=== PATIENT | male | born 1945 | race Caucasian/White ===

== ENCOUNTER 2020-07-16 09:46 | Emergency (ER) | payer OTHER ==
[~2020-07-16] VITALS: Ht 182.9 cm; Wt 78.9 kg
[~2020-07-16 09:46] MED LIST: ALFU10 PO; AMLO5 PO; ASPI325 PO; ASPI81CH PO; Aspirin EC81 MG PO; DOCU100 PO; EFFIENT10 MG PO; ERGO50000 PO; FINA5 PO; ISOD40ER PO; ISOMON20 PO; ISOMON30 PO; LISI10 PO; LISI20 PO; LISI5 PO; LORA.5 PO; LORA1 PO; METH10 PO; METO50 PO; MORP30 PO; MULVITMIND PO; NAPR220 PO; NITR.3SL SL; NITR.6SL SL; Nitrostat0.4 MG SL; OMEP20ER PO; OXYC10ER PO; OXYC10TA19 PO; OXYC5 PO; POTA10T PO; Prinivil10 MG PO; RANI150 PO; RANO500T PO; ROSU10TA PO; Thera Tears1 EAC1 BOTHEYES; XARELTO15 MG PO; [UNRECOGNIZED DRUG - OTHER] PO
[2020-07-16] MEDS ORDERED: Robaxin-750750 MG PO (12:39)
[2020-07-16] MEDS ORDERED: Prednisone20 MG PO (12:39)
== END 2020-07-16 13:26 | disposition home or self-care (01) ==
LOC: ER 09:46
DX: M25.552 Pain in left hip (principal); I10 Essential (primary) hypertension; I25.10 Atherosclerotic heart disease of native coronary artery without angina pectoris; E11.9 Type 2 diabetes mellitus without complications; E78.00 Pure hypercholesterolemia, unspecified; I25.810 Atherosclerosis of coronary artery bypass graft(s) without angina pectoris; Z95.5 Presence of coronary angioplasty implant and graft; Z95.1 Presence of aortocoronary bypass graft; Z87.891 Personal history of nicotine dependence; W19.XXXA Unspecified fall, initial encounter
CPT/HCPCS: 72192; 73502; 96374; 96376; 99284-25; J3010; J7512

== ENCOUNTER 2021-05-08 19:43 | Emergency (ER) | payer OTHER ==
[~2021-05-08] VITALS: Ht 182.9 cm; Wt 80.7 kg
[~2021-05-08 19:43] MED LIST changes: +Prednisone20 MG PO; +Robaxin-750750 MG PO
== END 2021-05-08 22:26 | disposition home or self-care (01) ==
LOC: ER 19:43
DX: S61.213A Laceration without foreign body of left middle finger without damage to nail, initial encounter (principal); W31.2XXA Contact with powered woodworking and forming machines, initial encounter; I10 Essential (primary) hypertension; E11.9 Type 2 diabetes mellitus without complications; Z79.82 Long term (current) use of aspirin; Z88.6 Allergy status to analgesic agent; Z88.8 Allergy status to other drugs, medicaments and biological substances; Z88.5 Allergy status to narcotic agent; Z88.2 Allergy status to sulfonamides
CPT/HCPCS: 73140; 99283-25

== ENCOUNTER 2021-05-09 13:20 | Emergency (ER) | payer OTHER ==
[~2021-05-09] VITALS: Ht 182.9 cm; Wt 80.3 kg
== END 2021-05-09 16:07 | disposition home or self-care (01) ==
LOC: ER 13:20
DX: S61.203A Unspecified open wound of left middle finger without damage to nail, initial encounter (principal); I48.91 Unspecified atrial fibrillation; Z79.01 Long term (current) use of anticoagulants; Z95.5 Presence of coronary angioplasty implant and graft; X58.XXXA Exposure to other specified factors, initial encounter
CPT/HCPCS: 99282

== ENCOUNTER 2021-08-15 00:20 | Emergency (ER) | payer OTHER ==
[~2021-08-15] VITALS: Ht 182.9 cm; Wt 79.4 kg
== END 2021-08-15 04:06 | disposition home or self-care (01) ==
LOC: ER 00:20
DX: S20.362A Insect bite (nonvenomous) of left front wall of thorax, initial encounter (principal); I25.10 Atherosclerotic heart disease of native coronary artery without angina pectoris; I10 Essential (primary) hypertension; E11.9 Type 2 diabetes mellitus without complications; E78.00 Pure hypercholesterolemia, unspecified; G47.33 Obstructive sleep apnea (adult) (pediatric); Z87.891 Personal history of nicotine dependence; Z91.048 Other nonmedicinal substance allergy status; Z88.2 Allergy status to sulfonamides; Z88.8 Allergy status to other drugs, medicaments and biological substances; Z88.5 Allergy status to narcotic agent; Z88.6 Allergy status to analgesic agent; Z79.899 Other long term (current) drug therapy; W57.XXXA Bitten or stung by nonvenomous insect and other nonvenomous arthropods, initial encounter
CPT/HCPCS: 99282

== ENCOUNTER 2022-01-06 22:45 | Observation (INO) | payer OTHER ==
[~2022-01-06] VITALS: Ht 182.9 cm; Wt 78.0 kg
[~2022-01-06 22:45] MED LIST changes: -ISOMON20 PO; +Imdur-ER60 MG PO; -OXYC10TA19 PO; -XARELTO15 MG PO; +XARELTO20 MG PO
[2022-01-07] MEDS ORDERED: Vitamin D1000 UNI1 PO (05:06)
[2022-01-07] MEDS ORDERED: DUTA.5 PO (05:07)
[2022-01-07] MEDS ORDERED: FAMO20 PO (05:07)
[2022-01-07] MEDS ORDERED: LIDO700A20 TOP (05:08)
[2022-01-07] MEDS ORDERED: Flonase 0.05% N16 GM (05:08)
[2022-01-07] MEDS ORDERED: Loratadine10 MG PO (05:09)
[2022-01-07] MEDS ORDERED: OXYC10ER PO (05:10)
[2022-01-07] MEDS ORDERED: MULVITA PO (05:10)
[2022-01-07 05:38] LABS: BASOPHILS ABSOLUTE AUTO 0.05 K/mm3 (0.00-0.23); BASOPHILS PERCENT AUTO 0 % (0-2); EOSINOPHILS ABSOLUTE AUTO 0.01 K/mm3 (0.00-0.68); EOSINOPHILS PERCENT AUTO 0 % (0-6); Hematocrit 36.5 % (37.0-53.0); Hemoglobin 12.5 g/dL (13.5-17.5); IMMATURE GRAN ABSOLUTE AUTO 0.06 K/mm3 (0.00-0.10); IMMATURE GRAN PERCENT AUTO 1 % (0-1); LYMPHOCYTES ABSOLUTE AUTO 2.46 K/mm3 (0.84-5.20); LYMPHOCYTES PERCENT AUTO 21 % (21-46); MONOCYTES ABSOLUTE AUTO 2.41 K/mm3 (0.16-1.47); MONOCYTES PERCENT AUTO 21 % (4-13); Mean Corpuscular HGB 29.2 pg (26.0-34.0); Mean Corpuscular HGB Conc 34.2 g/dL (31.5-36.5); Mean Corpuscular Volume 85 fL (80-100); Mean Platelet Volume 11.5 fL (9.1-12.4); NEUTROPHILS ABSOLUTE AUTO 6.54 K/mm3 (1.96-9.15); NEUTROPHILS PERCENT AUTO 57 % (41-73); Platelet Count 120 K/mm3 (150-400); RDW Coefficient Variation 13.2 % (11.7-14.2); RDW Standard Deviation 40.8 fL (35.1-46.3); Red Blood Cell Count 4.28 M/mm3 (4.30-5.90); White Blood Cell Count 11.53 K/mm3 (4.00-11.30)
[2022-01-07 06:45] LABS: Anion Gap 6 mmol/L (6-16); Blood Urea Nitrogen 14 mg/dL (8-24); Bun/Creatinine Ratio 16.5 (12.0-20.0); CO2, Blood 26 mmol/L (21-32); Calcium, Blood 9.1 mg/dL (8.5-10.1); Chloride, Blood 103 mmol/L (98-108); Creatinine, Blood 0.85 mg/dL (0.60-1.20); Glomerular Filtration Rate >60 (60-); Glucose, Blood 172 mg/dL (70-99); Potassium, Blood 3.9 mmol/L (3.5-5.5); Sodium, Blood 135 mmol/L (136-145)
--- NOTE | 2022-01-07 07:44 | NUR ---
PER TELE: NSR AT 96 WITH INCREASED PVC'S. HAS BEEN BIGEMINY WITH MOR FREQUENT PVC'S. VSS. CALLED DR SCOTT. SHE WILL ORDER K+ AND METOPROLOL PUSH,
--- NOTE | 2022-01-07 07:45 | NUR ---
PT PLEASANT COOP A/O X3. STATES PAIN IS 5-6, BUT OKAY. H/R REG, NO MURMER NOTED. PER TELE:; NSR WITH MANY PVC'S BIGENINY, SEE NOTES ON DISCUSSION WITH DR SCOTT. LUNGS CLEAR, RESP EASY, UNALBORED. ON R.A. BT X4 LAST BM YEST PER PT. VIODS URINAL. PRESENTLY IN PAIN IF MOVES . BED IN LOW POSITION, CALL LITE IN REACH, CALLS APPROP
--- NOTE | 2022-01-07 11:57 | NUR ---
SPOKE TO DR SCOTT. YES RUN UA. OKAY HOLD PAIN MED R/T LOW BP[facility]
[2022-01-07 12:09] LABS: Source, Urine Clean Catch
[2022-01-07 12:14] LABS: Appearance, Urine Clear (Clear); Bilirubin, Urine Neg (Neg); Blood, Urine Neg (Neg); Color, Urine Yellow (P-Yellow); Glucose Qualitative, Urine Neg (Neg); Ketones, Urine 1+ (Neg); Leukocyte Esterase, Urine Neg (Neg); Nitrite, Urine Neg (Neg); Protein, Urine Neg (Neg); Specific Gravity, Urine 1.015 (1.003-1.022); Urobilinogen, Urine NORM (Normal)
--- NOTE | 2022-01-07 15:09 | NUR ---
[address] CHING TELE RHYTHM. RUNNING METOPROLOL NOW. TELE ADVISED. BP 153/60 P 96 PER TELE MID OF METOPROLOL 158/84 P 99 END OF METOPROLOL 153/78 P 91 08:25 FOLLOWUP 138/76 P 88 08:30 FOLLOWUP 136/56 P 93 TELE STATES PVC'S IMPROVED NOT BIGEMINY NOW. DR NOTIFIED.
--- NOTE | 2022-01-07 15:16 | NUR ---
1040 PT BP LOW. 104/64 & 107/63 P 79 HOLDING OXY , NOTIFIED.
--- NOTE | 2022-01-07 19:27 | NUR ---
PT PLEASANT COOP DID HAVE SOME SPASMS. MED WITH CYCLO AND FENTANYL. BP STABILIZED FROM THIS AM. IN [place], CALLED IN THE INFORMATION ON THE STENT CARD WE NEED FOR HIS MRI. PASSED TO [facility]. PREVIOUSLY NOTED, THE TELE STATES HEART SETTLING DOWN. UPDATED T/O DAY. PAIN MANAGED TO PT SATISFACTION. BED IN LOW POSITION, CALLLITE IN REACH, CALLS APPROP
--- NOTE | 2022-01-07 21:29 | NUR ---
Faxed over stent info to MRI, followed up and said they have received it. They will follow up in the morning.
--- NOTE | 2022-01-08 04:51 | NUR ---
Patient is alert and oriented x4. Complains of back pain, prn pain medication given. Patient states effectiveness. Patient lays in supine position all night, minimal movement due to pain. Urinal offered. Snacks and fluids offered. No signs of distress. Call light within reach.
[2022-01-08 05:23] LABS: Hematocrit 36.9 % (37.0-53.0); Hemoglobin 12.5 g/dL (13.5-17.5); Mean Corpuscular HGB 29.1 pg (26.0-34.0); Mean Corpuscular HGB Conc 33.9 g/dL (31.5-36.5); Mean Corpuscular Volume 86 fL (80-100); Mean Platelet Volume 12.2 fL (9.1-12.4); Platelet Count 117 K/mm3 (150-400); RDW Coefficient Variation 13.3 % (11.7-14.2); RDW Standard Deviation 41.6 fL (35.1-46.3); White Blood Cell Count 13.02 K/mm3 (4.00-11.30)
[2022-01-08 06:13] LABS: Alanine Aminotransfer (ALT/SGP 24 U/L (12-78); Albumin, Blood 3.3 g/dL (3.4-5.0); Albumin/Globulin Ratio 0.7 (0.8-1.8); Alk Phos 30 U/L (50-136); Anion Gap 8 mmol/L (6-16); Aspartate Aminotrans (AST/SGOT 11 U/L (12-37); Blood Urea Nitrogen 16 mg/dL (8-24); Bun/Creatinine Ratio 18.8 (12.0-20.0); CO2, Blood 24 mmol/L (21-32); Calcium, Blood 9.6 mg/dL (8.5-10.1); Chloride, Blood 102 mmol/L (98-108); Creatinine, Blood 0.85 mg/dL (0.60-1.20); Globulin, Blood 4.5 g/dL (2.2-4.0); Glomerular Filtration Rate >60 (60-); Glucose, Blood 147 mg/dL (70-99); Potassium, Blood 3.9 mmol/L (3.5-5.5); Sodium, Blood 134 mmol/L (136-145); Total Protein, Blood 7.8 g/dL (6.4-8.2)
--- NOTE | 2022-01-08 07:37 | NUR ---
NOTIFIED CAN NOT DO MRI DUE TO MULTIPLE STENTS AND CAN NOT MEET REQUIREMENTS.
--- NOTE | 2022-01-08 09:32 | NUR ---
NOTIFIED DR.OLSON LOVE AT9AM AND NOW FREQUENT PVC'S. DID SAME YESTERDAY. TO ORDER MEDS
--- NOTE | 2022-01-08 13:35 | NUR ---
LEFT VOICE MAIL MESSAGE ON PHONE--SISTER CONCERNED ABOUT ALLERGIES SHE HAS SOME OF THE SAME AND SHE CAN NOT TAKE GABAPENTIN. ALSO WERE WONDERING ABOUT CARDIOLOGY CONSULT HE HAS ALWAYS HAD CARD CONSULT WHEN IN HOSPITAL DUE TO MEDS ETC. AWAITING ORDERS.
--- NOTE | 2022-01-08 16:11 | NUR ---
ALERT. ORIENTED. POOR APPETITE. USES URINAL. PAIN MEDS SEEM TO HELP IS SLEEPING WHEN RN DOES RECHECK. PER ELECTRICAL TECHNICIAN COULD NOT DO BECAUSE THEY COULD NOT ACCOMMADATE REQUIREMENTS FOR STENTS. UNLABORED RESPIRATIONS. TELE ON AND WAS RUNNING BIGEMINY IN AM AND GIVEN ONE DOSE IV MEDS WITH GOOD RESULTS. WCTM
--- NOTE | 2022-01-09 04:50 | NUR ---
SHIFT SUMMARY AOX4. VSS. TELE NSR c PVC & AFIB c ABERRENCY HR 80'S. REPORTED 9/10 PAIN IN BACK @HS, MEDICATED 1X c SCHEDULED 10MG OXYCONTIN. THIS AM PT REPORTS HE FEELS "MUCH BETTER" & IS BACK TO HIS NORMAL 3/10 PAIN LEVEL. STATES HE'S "AFRAID TO GET UP & WORK c PT" ENCOURAGED PT TO TRY. CALL LIGHT IN REACH. WILL MONITOR.
[2022-01-09 05:38] LABS: Hematocrit 38.3 % (37.0-53.0); Hemoglobin 13.1 g/dL (13.5-17.5); Mean Corpuscular HGB 29.1 pg (26.0-34.0); Mean Corpuscular HGB Conc 34.2 g/dL (31.5-36.5); Mean Corpuscular Volume 85 fL (80-100); Mean Platelet Volume 12.3 fL (9.1-12.4); Platelet Count 115 K/mm3 (150-400); RDW Standard Deviation 40.5 fL (35.1-46.3); White Blood Cell Count 9.05 K/mm3 (4.00-11.30)
[2022-01-09 05:51] LABS: Alanine Aminotransfer (ALT/SGP 34 U/L (12-78); Albumin/Globulin Ratio 0.5 (0.8-1.8); Alk Phos 34 U/L (50-136); Anion Gap 9 mmol/L (6-16); Aspartate Aminotrans (AST/SGOT 23 U/L (12-37); Bilirubin, Total 0.6 mg/dL (0.1-1.0); Blood Urea Nitrogen 27 mg/dL (8-24); Bun/Creatinine Ratio 29.6 (12.0-20.0); CO2, Blood 24 mmol/L (21-32); Calcium, Blood 10.1 mg/dL (8.5-10.1); Chloride, Blood 100 mmol/L (98-108); Creatinine, Blood 0.91 mg/dL (0.60-1.20); Globulin, Blood 5.5 g/dL (2.2-4.0); Glomerular Filtration Rate >60 (60-); Glucose, Blood 297 mg/dL (70-99); Magnesium, Blood 2.3 mg/dL (1.6-2.4); Sodium, Blood 133 mmol/L (136-145); Total Protein, Blood 8.5 g/dL (6.4-8.2)
--- NOTE | 2022-01-09 07:14 | NUR ---
ADVISED ABOUT PATIENT EKG STRIPS AND WHY PATIENT HERE. ORDER EKG
--- NOTE | 2022-01-09 09:15 | NUR ---
OXY AND LIDOCAINE HELD P.T. IN ROOM. PATIENT SLEPT MOST OF DAY YESTERDAY. FLEXERIL GIVEN TO HELP WITH PAIN
--- NOTE | 2022-01-09 15:21 | NUR ---
OOB TO BATHROOM THIS A.M. LARGE B.M. PASSING GAS. UNLABORED RESPIRATIONS. PATIENT DOING MUCH BETTER TODAY THAN YESTERDAY WHERE HE WOULD NOT EVEN TRY TO GET OOB. ALSO OOB W/WALKER AFTER LUNCH WITH STANDBY. TOLERATED BOTH TIMES FAIR.
--- NOTE | 2022-01-09 18:11 | NUR ---
ALERT. ORIENTED. OOB X 2 WITH FAIR RESULTS. PATIENT WISHING TO GO HOME TOMORROW. DOING MUCH BETTER; PAIN GRUBBS, GETTING OOB, AND EATTING. TELE ON. [facility]
--- NOTE | 2022-01-10 05:11 | NUR ---
SHIFT SUMMARY A/OX4, PLEASANT AND COOPERATIVE WITH CARE. 1 ASSIST WITH FWW AND GB. C/O MODERATE CHRONIC BACK PAIN, MEDICATED PER EMAR. TELE SR IN THE 80S. VSS, NO ACUTE CHANGES AT THIS TIME. BED IN LOWEST POSITION WITH CALL LIGHT IN REACH. WILL CONTINUE TO MONITOR AND REPORT TO ONCOMING RN.
--- NOTE | 2022-01-10 12:25 | NUR ---
PT PLEASANT COOP A/O X3 STATES PAIN MANAGED WITH AVAIL MEDS. SEE EMAR. H/R REG, NO MURMER NOTED. PER TLE. NSR AT 72. NO PVC'S OR BIGIMINY BEATS PER LAST WEEK. LUNGS CLEAR, RESP EASEY, UNLABORED. ON RA. BT X4 LAST BM TODAY IN PT. VOIDS URINAL. ABLE TO MOVE WITH FWW AND 1 SBA ASST. BED IN LOW POSITION, CALL LITE IN REACH, CALLS APROP
[2022-01-10] MEDS ORDERED: DOCU100 PO (13:13)
[2022-01-10] MEDS ORDERED: METPRE4 PO (13:19)
--- NOTE | 2022-01-10 16:41 | NUR ---
PT DISCHARGED AT 1515 WITH ALL PAPERWORK REVIEWED AND EDUCATIONAL MATERIAL SENT WITH PT. ALL PERSONAL BELONGING COLLECTED AND SENT WITH PT. TO TRANSPORT PT VIA AUTOMOBILE. NO DISTRESS NOTED ESCORTED OUT BY AID VIA WHEELCHIAR.
== END 2022-01-10 15:11 | disposition home or self-care (01) ==
LOC: ER 22:45 → MEDS 22:46 → ENPENDDIS 01-10 12:08 → MEDS 01-10 15:11
PROVIDERS: Family Medicine; Internal Medicine; ADMIT Family Medicine
DX: M54.50 Low back pain, unspecified (principal); G89.29 Other chronic pain; I48.91 Unspecified atrial fibrillation; I25.10 Atherosclerotic heart disease of native coronary artery without angina pectoris; E78.00 Pure hypercholesterolemia, unspecified; N40.0 Benign prostatic hyperplasia without lower urinary tract symptoms; I10 Essential (primary) hypertension; E11.9 Type 2 diabetes mellitus without complications; W11.XXXA Fall on and from ladder, initial encounter; Y93.H2 Activity, gardening and landscaping; Z95.1 Presence of aortocoronary bypass graft; Z95.5 Presence of coronary angioplasty implant and graft; Z98.1 Arthrodesis status; Z87.891 Personal history of nicotine dependence; Z91.048 Other nonmedicinal substance allergy status; Z88.8 Allergy status to other drugs, medicaments and biological substances; Z88.5 Allergy status to narcotic agent; Z88.6 Allergy status to analgesic agent; Z88.2 Allergy status to sulfonamides; Z79.02 Long term (current) use of antithrombotics/antiplatelets; Z79.01 Long term (current) use of anticoagulants
CPT/HCPCS: 36415; 72100; 72131; 80048; 80053; 81003; 83735; 85025; 85027; 87040; 93005; 93010; 96374; 96375; 96376; 97110; 97161; 99285-25; A9270; G0378; J2930; J3010; J3360; J7509

== ENCOUNTER 2023-01-20 14:40 | Emergency (ER) | payer OTHER ==
[~2023-01-20] VITALS: Ht 182.9 cm; Wt 74.8 kg
[~2023-01-20 14:40] MED LIST changes: +DUTA.5 PO; +FAMO20 PO; +Flonase 0.05% N16 GM; +LIDO700A20 TOP; +Loratadine10 MG PO; +METPRE4 PO; +MULVITA PO; +Vitamin D1000 UNI1 PO
[2023-01-20 16:18] LABS: BASOPHILS ABSOLUTE AUTO 0.02 K/mm3 (0.00-0.23); BASOPHILS PERCENT AUTO 0 % (0-2); EOSINOPHILS ABSOLUTE AUTO 0.01 K/mm3 (0.00-0.68); EOSINOPHILS PERCENT AUTO 0 % (0-6); Hematocrit 34.9 % (37.0-53.0); Hemoglobin 12.1 g/dL (13.5-17.5); IMMATURE GRAN ABSOLUTE AUTO 0.04 K/mm3 (0.00-0.10); IMMATURE GRAN PERCENT AUTO 0 % (0-1); LYMPHOCYTES ABSOLUTE AUTO 1.95 K/mm3 (0.84-5.20); LYMPHOCYTES PERCENT AUTO 20 % (21-46); MONOCYTES ABSOLUTE AUTO 1.23 K/mm3 (0.16-1.47); MONOCYTES PERCENT AUTO 12 % (4-13); Mean Corpuscular HGB 28.9 pg (26.0-34.0); Mean Corpuscular HGB Conc 34.7 g/dL (31.5-36.5); Mean Corpuscular Volume 84 fL (80-100); Mean Platelet Volume 11.9 fL (9.1-12.4); NEUTROPHILS ABSOLUTE AUTO 6.77 K/mm3 (1.96-9.15); NEUTROPHILS PERCENT AUTO 68 % (41-73); Platelet Count 249 K/mm3 (150-400); RDW Coefficient Variation 12.6 % (11.7-14.2); RDW Standard Deviation 38.6 fL (35.1-46.3); Red Blood Cell Count 4.18 M/mm3 (4.30-5.90); White Blood Cell Count 10.02 K/mm3 (4.00-11.30)
[2023-01-20 16:39] LABS: Albumin, Blood 2.8 g/dL (3.4-5.0); Albumin/Globulin Ratio 0.5 (0.8-1.8); Bilirubin, Direct 0.3 mg/dL (0.0-0.3); Bilirubin, Indirect 0.6 mg/dL (0.1-0.7); Bilirubin, Total 0.9 mg/dL (0.1-1.0); Bun/Creatinine Ratio 20.7 (12.0-20.0); Calcium, Blood 9.7 mg/dL (8.5-10.1); Creatinine, Blood 0.92 mg/dL (0.60-1.20); Globulin, Blood 5.7 g/dL (2.2-4.0); Potassium, Blood 4.1 mmol/L (3.5-5.5); Total Protein, Blood 8.5 g/dL (6.4-8.2)
[2023-01-20 16:50] LABS: Source, Urine Clean Catch
[2023-01-20 16:54] LABS: Appearance, Urine Hazy (Clear); Bilirubin, Urine Neg (Neg); Blood, Urine 2+ (Neg); Color, Urine Amber (P-Yellow); Glucose Qualitative, Urine Neg (Neg); Ketones, Urine Neg (Neg); Leukocyte Esterase, Urine Neg (Neg); Nitrite, Urine Neg (Neg); Protein, Urine 3+ (Neg); Urobilinogen, Urine 2+ (Normal)
[2023-01-20 17:25] LABS: Amorphous Light (0-Heavy); Bacteria Many /hpf; Hyaline Casts 0-2 /lpf (0-2); Mucus Mod (0-Heavy); Squamous Epithelial Cells Rare /hpf (Few)
[2023-01-20] MEDS ORDERED: CEFD300 PO (19:59)
[2023-01-20 20:47] VITALS: BP 112/70
== END 2023-01-20 20:49 | disposition home or self-care (01) ==
LOC: ER 14:40
PROVIDERS: Physician Assistant
DX: E87.1 Hypo-osmolality and hyponatremia (principal); N39.0 Urinary tract infection, site not specified; I25.10 Atherosclerotic heart disease of native coronary artery without angina pectoris; I10 Essential (primary) hypertension; E11.9 Type 2 diabetes mellitus without complications; E78.00 Pure hypercholesterolemia, unspecified; G47.33 Obstructive sleep apnea (adult) (pediatric); Z86.16 Personal history of COVID-19; Z91.048 Other nonmedicinal substance allergy status; Z88.8 Allergy status to other drugs, medicaments and biological substances; Z88.5 Allergy status to narcotic agent; Z88.1 Allergy status to other antibiotic agents; Z88.2 Allergy status to sulfonamides; Z79.899 Other long term (current) drug therapy; Z87.891 Personal history of nicotine dependence
CPT/HCPCS: 70450; 80048; 80076; 81001; 82140; 85025; 87086; 93005; 93010; 96365; 99285-25; J0696; J7030